=== PATIENT | female | born 1990 | race Hispanic/Latino ===

== ENCOUNTER 2024-06-24 23:28 | Emergency (ER) | payer SELFPAY ==
[2024-06-24] MEDS ORDERED: hydrOXYzine 25 MG TAB ONE (23:53)
== END 2024-06-25 00:08 | disposition home or self-care (01) ==
LOC: ERS 23:28
DX: F41.0 Panic disorder [episodic paroxysmal anxiety] (principal); F17.210 Nicotine dependence, cigarettes, uncomplicated
CPT/HCPCS: 93005